=== PATIENT | female | born 1950 | race Caucasian/White ===

== ENCOUNTER 2018-04-13 13:00 | Inpatient (IN) | payer MEDICARE ==
[2018-04-27] MEDS ORDERED: FAMOTIDINE 20MG TABLET PO ONE (06:00)
[2018-04-27] MEDS ORDERED: DAPTOMYCIN 500 MG/VIAL IV ONE (06:00)
[2018-04-27] MEDS ORDERED: ACETAMINOPHEN 1,000 MG/100 ML BTL IV ONE (06:00)
[2018-04-27] MEDS ORDERED: METOCLOPRAMIDE 10 MG TABLET PO ONE (06:00)
[2018-04-27] MEDS ORDERED: MECLIZINE 25 MG TABLET PO ONE (06:00)
[2018-04-27] MEDS ORDERED: CELECOXIB 100 MG CAPSULE PO ONE (06:00)
[2018-04-27 06:49] LABS: ABO GROUP A; ANTIBODY SCREEN NEGATIVE (NEGATIVE); RH TYPE POSITIVE
[2018-04-27] MEDS ORDERED: AL HYDROX/MAG HYDROX 30ML UD PO PRN (08:26)
[2018-04-27] MEDS ORDERED: ONDANSETRON HCL IV 4 MG/2 ML VIAL IVP PRN (08:26)
[2018-04-27] MEDS ORDERED: ACETAMINOPHEN W/ CODEINE 300MG/60MG TABLET PO PRN ×2 (08:26)
[2018-04-27] MEDS ORDERED: BISACODYL 10 MG SUPP RC PRN (08:26)
[2018-04-27] MEDS ORDERED: ACETAMINOPHEN 325 MG TAB PO PRN (08:26)
[2018-04-27] MEDS ORDERED: HYDROCODONE/APAP 5/325MG TABLET PO PRN ×2 (08:26)
[2018-04-27] MEDS ORDERED: MAGNESIUM HYDROXIDE 30 ML UDC PO PRN (08:26)
[2018-04-27] MEDS ORDERED: NALOXONE 0.4 MG/1 ML VIAL IVP PRN (08:26)
[2018-04-27] MEDS ORDERED: DIPHENHYDRAMINE HCL 25 MG CAPSULE PO PRN (08:26)
[2018-04-27] MEDS ORDERED: HYDROMORPHONE HCL 2 MG/ML VIAL IM PRN ×2 (08:26)
[2018-04-27] MEDS ORDERED: ACETAMINOPHEN W/ CODEINE 300MG/30MG TABLET PO PRN ×2 (08:26)
[2018-04-27] MEDS ORDERED: PROMETHAZINE HCL 12.5 MG in 0.9 % SODIUM CHLORIDE 100ML 50 ML IVPB PRN (08:26)
[2018-04-27] MEDS ORDERED: KETOROLAC 30 MG/ML VIAL IVP PRN ×2 (08:26)
[2018-04-27] MEDS ORDERED: ZOLPIDEM TARTRATE 5 MG TABLET PO PRN (08:26)
[2018-04-27] MEDS ORDERED: TRAMADOL HCL 50 MG TABLET PO PRN ×2 (08:26)
[2018-04-27] MEDS ORDERED: METOCLOPRAMIDE HCL 10 MG/2 ML VIAL IVP PRN (08:26)
[2018-04-27] MEDS ORDERED: VANCOMYCIN HCL 1,000 MG in 0.9 % SODIUM CHLORIDE 250ML 250 ML IVPB SCH (08:30)
[2018-04-27] MEDS: HYDROCODONE/APAP 7.5/325MG TABLET PO PRN ×4 (12:46→21:41)
[2018-04-27] MEDS: PATIENT OWN MED: SULFASALAZINE 500 MG PO SCH ×2 (13:00→21:43)
[2018-04-27] MEDS ORDERED: TRANEXAMIC ACID 1,000 MG/10 ML ML IV ONE (13:34)
[2018-04-27] MEDS ORDERED: PHENYLEPHRINE HCL 10 MG/ML VIAL IVP ONE (14:00)
[2018-04-27] MEDS ORDERED: LIDOCAINE 2% MDV (20MG/ML) 20ML VIAL IV ONE (14:00)
[2018-04-27] MEDS ORDERED: PROPOFOL 10 MG/ML VIAL IV ONE (14:00)
[2018-04-27] MEDS ORDERED: MIDAZOLAM HCL 2MG/2ML VIAL IV ONE (14:00)
[2018-04-27] MEDS ORDERED: GLYCOPYRROLATE 0.2 MG/ML ML IV ONE (14:00)
--- NOTE | 2018-04-27 14:20 | Rehab Evaluation ---
Patient Information - Patient Information Diagnosis: R hip OA Ordered Treatment: PT Evaluate and Treat Status: Initial Evaluation Surgery: Yes (R THR) Date of Surgery: 04/27/18 Past Medical/Surgical Hx: PAST MEDICAL/SURGICAL HISTORY Past Surgical History BILAT WRIST SX X'S 3 HYST LTHA RIGHT SHOULDER PMH - Respiratory Hx Respiratory Disorders No PMH - Cardiovascular Hx Cardiovascular Disorders No Exercise Tolerance Good PMH - Neuro Hx Neurological Disorders No PMH - GI Hx Gastrointestinal Disorders No PMH - Hx Genitourinary Disorders No PMH - Endocrine Hx Endocrine Disorders No PMH - Musculoskeletal Hx Musculoskeletal Disorders Yes Hx Arthritis Yes: RA AND OA PMH - Psych Hx Psychiatric Problems Yes Hx Anxiety Yes: MILD PMH - Hematology/Oncology Hx Hematology/Oncology Yes Disorders Hx Cancer Yes: CERVICAL 1985 Premorbid Status: Detail (Prior to surgery the patient was independent with all mobility, however ambulation was painful the 2 weeks prior to surgery per patient's report.) Social History: Detail (The patient lives with spouse in a 2 story house with 4 stairs at the enterance with a no railings, (just a chair rail). The patient has a flight of 14 stairs with one handrail in beween the first and second floor. The patient's bedroom and only bathroom are on the second floor. The bathroom is equipped with a tub/shower combination, grab bars ,hand held shower head and standard toilet without grab bars. The patient has a shower chair but reports she doesn't like to use it. The patient has a front wheeled walker with wheels and a quad cane.) Precautions: [place], Fall, Other (THR precautions.) - Time With Patient Total Time Spent With Patient (Min): 30 Treatment Procedures: Detail (Initial Evaluation, gait training) Subjective Information - Subjective Information Per Patient (The patient had complaints of R hip pain, initially a 9 and a 7 after ambulation using 0-10 pain scale.) Objective Data - Mental Status Patient Orientation: Oriented x3 - Visual Perception Appears within normal limits for therapeutic activities - ROM Not within normal limits (The patient's R hip is within THR precautions. All other AROM is WNL.) - Strength/Tone Not within normal limits (The patient's R LE strength was not tested secondary to s/p surgery, however strength was functional, the patient required minimal assist to slide R LE across bed. The patient's L LE strength was WNL.) - Bed Mobility Independent (The patient required minimal PA to slide R LE across bed with supine to sit.) - Transfers Independent (The patient was independent with sit to stand and stand to sit transfer(with slow gaurded movement). The patient was independent with toilet transfer with use of grab bar.) - Balance Balance Sitting: Good Balance Standing: Good - Sensation Intact - Gait Detail (The patient ambulated with front wheeled walker WBAT on the R LE with supervision for safety a distance of 13 feet x 1 and 48 feet x 1.) Therapy Assessment - Therapy Assessment Detail (The patient required minimal assist with supine to sit , was independent with transfers and ambulation. Feel the patient will progress well with mobility. Use of a commode seat over her toilet is recommended at home to maintain THR precautions. Due to stable condition and few co-morbidities the PT evaluation is rated as low.) Patient Education - Patient Education Teaching Topic: Precautions (The patient was able to identify 2 out of the 3 THR precautions.) Response: Return Demonstration Teaching Method: Discussion, Handout Teaching Recipient: Patient Barriers To Learning: None Problem List - Problem List Physical Therapy Problem List: Detail (1) Decreased R LE strength 2) Impaired ambulation s/p surgery) Goals - Goals Physical Therapy Goals: 1) The patient will be independent with all bed mobility. 2) The patient will ambulate on a flight of stairs using proper technique with supervision for safety. 3) The patient will be independent with THR HEP. Prognosis - Prognosis Good Plan - Plan Physical Therapy Plan: PT for 1-2 sessions for gait training on stairs and instruction in HEP.
[2018-04-27] MEDS: DEXTROSE 5 % AND 0.9 % NACL 1,000 ML IV PRN ×2 (16:22→23:38)
--- NOTE | 2018-04-27 19:46 | Operative Note ---
DATE OF SURGERY: 04/27/2018 PREOPERATIVE DIAGNOSIS: END-STAGE RIGHT HIP ARTHROSIS. POSTOPERATIVE DIAGNOSIS: END-STAGE RIGHT HIP ARTHROSIS. PROCEDURE: RIGHT TOTAL HIP ARTHROPLASTY. SURGEON: MARKO DURAND M.D. ANESTHESIA: SPINAL. BRIEN FERRARO. COMPLICATIONS: NONE. BLOOD LOSS: 200 ML. OPERATIVE FINDINGS: [id number] HIP ARTHROSIS. COMPONENTS PLACED: [employer] Synergy, collared, cemented total hip arthroplasty system. Size 13 high-offset with a 32 -3 mm Oxinium femoral head component, a 50 mm three-hole acetabular shell component with two screw caps, a centrally threaded screw cap, and a 40 mm acetabular screw, and a 20 degree hooded high-crosslinked acetabular liner. INDICATIONS FOR OPERATION: This is a 67-year-old female who is well-known to myself. She is status post left hip arthroplasty done by myself and is now scheduled for the right. I explained the risks and benefits thoroughly in detail for her diagnosis and procedures including but not limited to infection, nerve injury, vessel injury, persistent pain, persistent numbness and tingling in her hip, periprosthetic fracture, need for resection arthroplasty should the components become infected or loosened, nerve injury, vessel injury, and blood clot, limb length discrepancy and need for further procedures, need for anticoagulation to prevent blood clots and the risks associated with these medications. All of her questions were answered. Rehab and course were outlined and she agreed to proceed. PROCEDURE: The patient was brought to the O.R. and placed in the left lateral decubitus position. Her right hip and lower extremity were prepped pre in sterile fashion. It was prepped again with ChloraPrep after it was draped. Intraoperative time-out was performed. Next, using the incision-marking template, we marked a small incision over the posterior gluteal region and infiltrated with 0.5% Marcaine with Epinephrine. The skin and subcutaneous tissue were dissected down. Gluteal fascia was split longitudinally and the subgluteal plane was bluntly dissected. We identified the sciatic nerve. This was carefully protected at all times. We took off the short external rotators and tagged them with #2 Vicryl. Next, we incised the capsule and released that and dislocated the femoral head. The femoral head was devoid of any cartilage. It had spurs. We resected it about 1.5 cm above the lesser trochanter and inserted the boxed osteotome. We then started reaming by hand first, with a 7 mm reamer working up in 1 mm increments up to a size 14. We stopped there. We broached to 12 and calcar planed and then a 13 and calcar planed and then a 14. We stopped there. It did not quite get all the way down and we plan on using a size 13 real stem. Attention was turned to the acetabulum. We placed an inferior acetabular retractor. We released the capsule anteriorly and placed a retractor there and had good exposure of the acetabulum. We removed some of the labrum and capsule around the periphery. We then started reaming in 1 mm increments starting with a 44 mm reamer and 45 degrees of inclination until we reamed up to a size 49 mm reamer. We then trialed a 50 shell and it fit nice, just as the contralateral side. Next, we irrigated copiously. We changed gloves and then impacted down the real reflection three-hole acetabular shell with a helicopter guide so we had 45 of inclination and 20 degrees of anteversion until it was flush to the medial wall. Next, we drilled a posterior central superior quadrant screw hole and measured for a 40 mm screw. We inserted that screw without difficulty and had good purchase. Next, we placed the trial liner and did a trial reduction. The best combination for range of motion, stability, limb lengths, and abductor tension was with a high-offset 32 mm -3 mm femoral head component. This allowed for flexion to 90 and internal rotation to 80 before the hip dislocated. We had good abductor tension and stability with extension in external rotation and these were the sizes we used. Next, took out the trial components. We irrigated the acetabular shell copiously. We placed the centrally threaded screw cap and the other two screw caps and placed the real 20 degree hooded high-crosslinked polyethylene liner with the owusu in the posterior superior quadrant. We impacted that down and verified it was interlocked. Next, we the femoral canal irrigated copiously. We placed a cement restrictor distally and injected [employer]hew cement with 3rd generation cement technique. We removed the suction catheter and impacted down the real femoral stem until the collar was flush with the medial calcar in 15 degrees of anteversion. We held it there until the cement hardened. Once the cement hardened, we then cleaned and dried the trunnion and impacted down the real femoral head component. Next, we then irrigated copiously with pulse lavage and antibiotic solution. We re-reduced the hip. Final range of motion and stability revealed the same. Leg lengths were equal. Next, we irrigated and then we injected with our 0.5% Marcaine with Epinephrine , 2 gm tranexamic acid, and Exparel mixture deep to superficial, in the deep short external rotators to the trochanter subperiosteally working out more superficially to the gluteal muscle and subcutaneous. Next, we closed the gluteal fascia securely using a running #2 Quill suture. We irrigated and again and closed the skin with several buried #2-0 Vicryl sutures and a sterile provisional dressing was applied and it will be changed to a CAROL dressing prior to discharge and that will be left on for one week. cc: Dr. Gurvinder Joshua JOB NUMBER: [id number] MTDD
[2018-04-27] MEDS: DOCUSATE SODIUM 100 MG CAPSULE PO SCH (21:41)
[2018-04-27] MEDS: FERROUS SULFATE 325 MG TAB PO SCH (21:41)
[2018-04-28] MEDS: HYDROCODONE/APAP 7.5/325MG TABLET PO PRN ×3 (02:43→13:29)
--- NOTE | 2018-04-28 05:03 | RADIOLOGY REPORT ---
EXAM: RIGHT HIP HISTORY: POST RIGHT HIP ARTHROPLASTY. TECHNIQUE: A single AP view of the right hip were obtained. Comparison: None. FINDINGS: Right total hip arthroplasty. The hardware appears intact and in expected alignment on this single view. Adjacent soft tissue lucencies likely represent expected postoperative change. A fracture is visualized. IMPRESSION: UNREMARKABLE POSTOPERATIVE APPEARANCE OF THE RIGHT HIP. JOB NUMBER: [id number] MTDD
[2018-04-28 06:49] LABS: HEMOGLOBIN 10.2 gm/dl (11.6-16.0)
--- NOTE | 2018-04-28 08:34 | Rehab Evaluation ---
Patient Information - Patient Information Diagnosis: R hip OA Ordered Treatment: OT Evaluate and Treat Status: Initial Evaluation Surgery: Yes (R THR) Date of Surgery: 04/27/18 Past Medical/Surgical Hx: PAST MEDICAL/SURGICAL HISTORY Past Surgical History BILAT WRIST SX X'S 3 HYST LTHA RIGHT SHOULDER PMH - Respiratory Hx Respiratory Disorders No PMH - Cardiovascular Hx Cardiovascular Disorders No Exercise Tolerance Good PMH - Neuro Hx Neurological Disorders No PMH - GI Hx Gastrointestinal Disorders No PMH - Hx Genitourinary Disorders No PMH - Endocrine Hx Endocrine Disorders No PMH - Musculoskeletal Hx Musculoskeletal Disorders Yes Hx Arthritis Yes: RA AND OA PMH - Psych Hx Psychiatric Problems Yes Hx Anxiety Yes: MILD PMH - Hematology/Oncology Hx Hematology/Oncology Yes Disorders Hx Cancer Yes: CERVICAL 1985 Premorbid Status: Detail (Prior to surgery the patient was independent with all mobility, meal prep, laundry and home mgmt.) Social History: Detail (The patient lives with spouse in a 2 story house with 4 stairs at the entrance with no railings, (just a chair rail). The patient has a flight of 14 stairs with one handrail in beween the first and second floor. The patient's bedroom and only bathroom are on the second floor. The bathroom is equipped with a tub/shower combination, grab bars ,hand held shower head and standard toilet without grab bars. The patient has a shower chair but reports she doesn't like to use it. The patient has a front wheeled walker with wheels and a quad cane as well as a bore miner operator, shoe horn and long sponge.) Precautions: [place], Fall, Other (THR precautions.) Subjective Information - Subjective Information Per Patient Objective Data - Pain Pain Present: Yes (06/17) - Mental Status Patient Orientation: Oriented x3 - Visual Perception Appears within normal limits for therapeutic activities - ROM Within normal limits (Tevin UE AROM WNL) - Strength/Tone Within normal limits (Tevin UE strength WNL) - Coordination Appears within normal limits for therapeutic activities - Transfers Independent (Ind with sit to stand from chair and commode heights.) - Balance Balance Sitting: Good Balance Standing: Good - Sensation Intact - Gait Detail (Pt ambulated in room with walker Indly) - ADL's/IADL's Detail (Pt educated and able to demonstrate learning of modified LE dressing techniques using adaptive equipment while maintaining total hip precautions including doffing slipper socks and underwear, donning underwear, pants, socks and slip on shoes using bore miner operator, sock aid and long shoe horn. Pt reports spouse can assist with socks if needed. Reviewed kitchen and shower safety and modifications, pt verbalized understanding.) Therapy Assessment - Therapy Assessment Detail (Pt is Ind with modified LE dressing techniques using adaptive equipment while maintaining total hip precautions. Recommended pt consider use of a commode over toilet as well as having it available on the first floor during the daytime hours. She will consider this option.) Problem List - Problem List Physical Therapy Problem List: Detail (1) Decreased R LE strength 2) Impaired ambulation s/p surgery) Occupational Therapy Problem List: Detail (No current IP OT problems identified. ) Goals - Goals Physical Therapy Goals: 1) The patient will be independent with all bed mobility. 2) The patient will ambulate on a flight of stairs using proper technique with supervision for safety. 3) The patient will be independent with THR HEP. Occupational Therapy Goals: No current IP OT goals identified. Prognosis - Prognosis Good Plan - Plan Physical Therapy Plan: PT for 1-2 sessions for gait training on stairs and instruction in HEP. Occupational Therapy Plan: No further IP OT recommended. Thank you for this referral.
[2018-04-28] MEDS ORDERED: DAPTOMYCIN 500 MG/VIAL IV ONE (09:00)
[2018-04-28] MEDS: DOCUSATE SODIUM 100 MG CAPSULE PO SCH (09:58)
[2018-04-28] MEDS: FERROUS SULFATE 325 MG TAB PO SCH (09:59)
[2018-04-28] MEDS ORDERED: RIVAROXABAN 10 MG TABLET PO SCH (10:00)
[2018-04-28] MEDS ORDERED: CELECOXIB 100 MG CAPSULE PO SCH (10:00)
[2018-04-28] MEDS: PATIENT OWN MED: SULFASALAZINE 500 MG PO SCH (10:13)
--- NOTE | 2018-04-28 11:19 | Physical Therapy Tx Note ---
Physical Therapy Tx Note - Treatment Note Tolerated: Good Total Time Spent With Patient: 30 Physical Therapy Tx Note: Detail (The patient had some complaints of R hip pain but did not rate it using 0-10 pain scale. The patient ambulated with front wheeled walker a distance of 120 feet x 1 WBAT on the R LE independently. The patient ambulated on a flight of 3 steps x 2 with use of one railing and cane using proper technique with supervision for safety only. The patient declined ambulation on a flight of 7 stairs. ( The patient has 14 stairs at home). The patient stated she felt comfortable with stair climbing. The patient completed the following THR exercises: gluteal sets, ankle pumps, hamstring sets, quad sets, and verbalized hip abduction and heel slides ( Patient refused to go to bed). The patient has met all inpatient PT goals and is discharged from inpatient PT.) Physical Therapy Problem List: Detail (1) Decreased R LE strength 2) Impaired ambulation s/p surgery) Physical Therapy Goals: 1) The patient will be independent with all bed mobility ( Goal Met- from recliner- pt. slept in chair and will be sleeping in recliner initially at home.). 2) The patient will ambulate on a flight of stairs using proper technique with supervision for safety. (Goal Met). 3) The patient will be independent with THR HEP. (Goal Met) Physical Therapy Plan: All inpatient PT goals have been met. The patient is to receive Home PT.
== END 2018-04-28 15:10 | disposition home or self-care (01) | DRG 470 ==
LOC: MEDSURG 04-27 06:02
PROVIDERS: ADMIT Orthopaedic Surgery; ATTEND Orthopaedic Surgery
PROC: 0SR9069 Replacement of Right Hip Joint with Oxidized Zirconium on Polyethylene Synthetic Substitute, Cemented, Open Approach (ICD-10-PCS; principal; 2018-04-27 08:00)
DX: M16.11 Unilateral primary osteoarthritis, right hip (principal); M06.9 Rheumatoid arthritis, unspecified; F17.210 Nicotine dependence, cigarettes, uncomplicated
CPT/HCPCS: 85014; 85018; 86850; 86900; 86901; 97110; 97530; J0878; J1885; J2370; J7042